=== PATIENT | male | born 1995 | race Caucasian/White ===

== ENCOUNTER 2025-11-12 08:57 | Emergency (ER) | payer OTHER ==
[~2025-11-12] VITALS: Ht 177.8 cm; Wt 90.9 kg
[2025-11-12 08:59] VITALS: TEMP 97.9
[2025-11-12] MEDS: ONDANSETRON 4MG/2ML VIAL IV ONE (09:36)
[2025-11-12] MEDS: NS (Normal Saline) 0.9% 1,000 ML IV ONE (09:36)
[2025-11-12 09:42] LABS: BASO # 0.0 10^3/uL (0.0-0.2); BASO % 0.2 % (0.0-1.0); EOS # 0.0 10^3/uL (0.0-0.5); EOS % 0.4 % (0.0-3.0); LYMPH # 0.5 10^3/uL (1.5-5.0); LYMPH % 4.4 % (24.0-44.0); MONO # 0.4 10^3/uL (0.0-0.8); MONO % 3.5 % (2.0-8.0); NEUTROPHILS # 9.3 10^3/uL (1.5-8.5); NEUTROPHILS % 91.2 % (36.0-66.0); PLATELET COUNT, AUTOMATED 284 10^3/uL (150-450)
[2025-11-12] MEDS: KETOROLAC 30 MG/ML 1 ML VIAL IV ONE (09:54)
[2025-11-12 10:00] LABS: ALT/SGPT 52 U/L (7.0-40); AST/SGOT 39 U/L (<34); CALCIUM LEVEL 9.5 MG/DL (8.5-10.1); CARBON DIOXIDE LEVEL 30 MMOL/L (20-31); CHLORIDE LEVEL 102 MMOL/L (98-107); CREATININE FOR GFR 0.98 MG/DL (0.70-1.30); GLOMERULAR FILTRATION RATE > 90.0 (>60); POTASSIUM SERUM 4.8 MMOL/L (3.5-5.1); SODIUM LEVEL 140 MMOL/L (136-145)
[2025-11-12 12:00] VITALS: BP 127/76
[2025-11-12 12:06] VITALS: O2SAT 96
[2025-11-12] MEDS ORDERED: ONDA-282 PO (12:18)
== END 2025-11-12 12:39 | disposition home or self-care (01) ==
LOC: M ED 08:57
DX: R74.01 Elevation of levels of liver transaminase levels (principal); R11.2 Nausea with vomiting, unspecified; R19.7 Diarrhea, unspecified; F10.10 Alcohol abuse, uncomplicated; Z88.2 Allergy status to sulfonamides; Z79.899 Other long term (current) drug therapy
CPT/HCPCS: 80047; 80048; 80076; 83690; 85025; 87486; 87581; 87633; 87798; 93041; 96361; 96374; 96375; 99284; J1885; J2405